=== PATIENT | male | born 1990 | race Caucasian/White ===

== ENCOUNTER 2016-04-20 16:06 | Emergency (ER) | payer OTHER ==
--- NOTE | 2016-04-20 17:23 | EDDOCDS ---
Physician Documentation [facility] Name: Tang Lucas Age: 25 yrs Sex: Male : 1990 Arrival Date: 04/20/2016 Time: 16:06 Bed Triage 3 Private MD: [place] [facility] [place]: 04/20/16 17:13 Discharged to Home/Self Care. Impression: Disorder of right external ear, unspecified. - Condition is Stable. - Discharge Instructions: Ear Barotrauma. - Prescriptions for Ibuprofen 600 mg Oral Tablet - take 1 tablet by ORAL route every 6 hours As needed take with food; 30 tablet. - Medication Reconciliation, Local Pharmacy Hours form. - Follow up: Ryan Mcneil; Reason: Continuance of care. - Problem is an ongoing problem. - Symptoms are unchanged. - Notes: Dr mcneil on 04/21/16 \T\ 0800 Historical: - Allergies: no known allergies; - Home Meds: 1. none - PMHx: none; - PSHx: none; - Social history: Smoking status: Patient states was never smoker of tobacco. No barriers to communication noted, The patient speaks fluent Welsh. - Family history: Not pertinent. - : The pt / caregiver states he / she is not on anticoagulants. Home medication list is obtained from the patient. - Exposure Risk Screening:: None identified. Vital Signs: 04/20 16:10 BP 167 / 72; Pulse 92; Resp 16; Temp 97.5(O); Pulse Ox 99% on R/A; Weight 71.67 kg / lr2 158.01 lbs (R); Height 5 ft. 7 in. (170.18 cm) (R); Pain 5/10; 16:10 Body Mass Index 24.75 (71.67 kg, 170.18 cm) lr2 Signatures: Tom Sky, GEOPHYSICAL LABORATORY SUPERVISOR GEOPHYSICAL LABORATORY SUPERVISOR Janey LindaRN RN ck1 Jami ChaoRN RN rs3 MTDD
--- NOTE | 2016-04-20 17:24 | EDDOCDS ---
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 rs3 had slight redness/pain in R ear. swelling and tenderness getting worse. Adult Sepsis Screening: The patient does not have new or worsening altered mentation. Patient's respiratory rate is less than 22. Systolic blood pressure is greater than 100. Patient has a qSOFA score of 0- Negative Sepsis Screen. Suicide/Homicide risk assessment- the patient denies having any suicidal and/or homicidal ideations and does not present with any other emotional, behavioral or mental health complaints. 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 Transition of care: patient was not received from another setting of care. 16:11 Acuity: JHON Level 3 rs3 16:11 Method Of Arrival: Walkin/Carried/Asstd rs3 Triage Assessment: 16:14 General: Appears in no apparent distress. Pain: Location: right ear. Pt Declines HIV rs3 testing. Historical: - Allergies: no known allergies; - Home Meds: 1. none - PMHx: none; - PSHx: none; - Social history: Smoking status: Patient states was never smoker of tobacco. No barriers to communication noted, The patient speaks fluent Slovak. - Family history: Not pertinent. - : The pt / caregiver states he / she is not on anticoagulants. Home medication list is obtained from the patient. - Exposure Risk Screening:: None identified. Screenin:22 Screening information is obtained from the patient. Fall risk: No risks identified. ck1 Assistance ADL's: requires no assistance with activities of daily living. Abuse/DV Screen: The patient / caregiver reports he/she is: not in a situation that causes fear, pain or injury. Nutritional screening: No deficits noted. Advance Directives: Currently, there is no health care proxy. home support is adequate. Assessment: 17:22 General: Appears in no apparent distress, comfortable, Behavior is appropriate for age, ck1 cooperative. Pain: Location: right ear Pain currently is 6 out of 10 on a pain scale. EENT: Ear canal bruising and swelling noted to right ear. patient reports pain 7/10. Respiratory: No deficits noted. Derm: Bruising that is dark purple, on right ear Swollen area noted. Vital Signs: 16:10 BP 167 / 72; Pulse 92; Resp 16; Temp 97.5(O); Pulse Ox 99% on R/A; Weight 71.67 kg (R); lr2 Height 5 ft. 7 in. (170.18 cm) (R); Pain 5/10; 16:10 Body Mass Index 24.75 (71.67 kg, 170.18 cm) lr2 Vitals: 16:10 Log In Time: April 20, 2016 at 16:05. lr2 ED Course: 16:08 Patient visited by Ida Ariza. lr2 16:08 Patient moved to Waiting lr2 16:09 ALIZA Akhtar is Private Physician. lr2 16:10 Patient moved to Pre RCE lr2 16:13 Triage Initiated rs3 16:17 Patient moved to Triage 3 ck1 16:59 [facility] ke 16:59 Patient visited by Tom Sky FNP. ke 16:59 Patient visited by Tom Sky FNP. ke 17:12 Ryan Mcneil is Referral Physician. ke 17:22 The patient / caregiver is instructed regarding the plan of care and ED course. ck1 17:22 No IV's were initiated during this patient's visit. No procedures done that require ck1 assistance. Order Results: There are currently no results for this order. Outcome: 17:13 Discharge ordered by Provider. ke 17:21 Discharge Assessment: Patient awake, alert and oriented x 3. No cognitive and/or ck1 functional deficits noted. Patient verbalized understanding of disposition instructions. patient administered narcotics - no. The following High Risk Discharge criteria are identified: None. Discharged to home ambulatory. Condition: stable. Discharge instructions given to patient, Instructed on discharge instructions, follow up and referral plans. medication usage, Demonstrated understanding of instructions, medications, Pt was receptive of discharge instructions/ teaching. Prescriptions given X 1. No special radiology studies were completed. Property :Personal belongings accompany Pt. 17:23 Patient left the ED. ck1 Signatures: Tom Sky FNP FNP ke Kim-Ryan,Janey,RN RN ck1 Jami Chao,RN RN rs3 Ida Ariza2 MTDD
--- NOTE | 2016-04-22 18:24 | EDDOCDS ---
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 rs3 had slight redness/pain in R ear. swelling and tenderness getting worse. Adult Sepsis Screening: The patient does not have new or worsening altered mentation. Patient's respiratory rate is less than 22. Systolic blood pressure is greater than 100. Patient has a qSOFA score of 0- Negative Sepsis Screen. Suicide/Homicide risk assessment- the patient denies having any suicidal and/or homicidal ideations and does not present with any other emotional, behavioral or mental health complaints. 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 Transition of care: patient was not received from another setting of care. 16:11 Acuity: JHON Level 3 rs3 16:11 Method Of Arrival: Walkin/Carried/Asstd rs3 Triage Assessment: 16:14 General: Appears in no apparent distress. Pain: Location: right ear. Pt Declines HIV rs3 testing. Historical: - Allergies: no known allergies; - Home Meds: 1. none - PMHx: none; - PSHx: none; - Social history: Smoking status: Patient states was never smoker of tobacco. No barriers to communication noted, The patient speaks fluent Armenian. - Family history: Not pertinent. - : The pt / caregiver states he / she is not on anticoagulants. Home medication list is obtained from the patient. - Exposure Risk Screening:: None identified. Screenin:22 Screening information is obtained from the patient. Fall risk: No risks identified. ck1 Assistance ADL's: requires no assistance with activities of daily living. Abuse/DV Screen: The patient / caregiver reports he/she is: not in a situation that causes fear, pain or injury. Nutritional screening: No deficits noted. Advance Directives: Currently, there is no health care proxy. home support is adequate. Assessment: 17:22 General: Appears in no apparent distress, comfortable, Behavior is appropriate for age, ck1 cooperative. Pain: Location: right ear Pain currently is 6 out of 10 on a pain scale. EENT: Ear canal bruising and swelling noted to right ear. patient reports pain 7/10. Respiratory: No deficits noted. Derm: Bruising that is dark purple, on right ear Swollen area noted. Vital Signs: 16:10 BP 167 / 72; Pulse 92; Resp 16; Temp 97.5(O); Pulse Ox 99% on R/A; Weight 71.67 kg (R); lr2 Height 5 ft. 7 in. (170.18 cm) (R); Pain 5/10; 16:10 Body Mass Index 24.75 (71.67 kg, 170.18 cm) lr2 Vitals: 16:10 Log In Time: April 20, 2016 at 16:05. lr2 ED Course: 16:08 Patient visited by Ida Ariza. lr2 16:08 Patient moved to Waiting lr2 16:09 [place] [facility] [place]. lr2 16:10 Patient moved to Pre RCE lr2 16:13 Triage Initiated rs3 16:17 Patient moved to Triage 3 ck1 16:59 [facility] ke 16:59 Patient visited by Tom Sky FNP. ke 16:59 Patient visited by Tom Sky FNP. ke 17:12 Ryan Mcneil is Referral Physician. ke 17:22 The patient / caregiver is instructed regarding the plan of care and ED course. ck1 17:22 No IV's were initiated during this patient's visit. No procedures done that require ck1 assistance. 17:53 [facility] Payment Agreement was scanned into [employer] and attached to record. zo 18:07 Patient name changed from Tang\S\\S\Devoll\S\ to Tang\S\ \S\Devoll. EDMS 04/21 10:51 T-Sheet-- Draft Copy was scanned into [employer] and attached to record. gb Order Results: There are currently no results for this order. Outcome: 04/20 17:13 Discharge ordered by Provider. ke 17:21 Discharge Assessment: Patient awake, alert and oriented x 3. No cognitive and/or ck1 functional deficits noted. Patient verbalized understanding of disposition instructions. patient administered narcotics - no. The following High Risk Discharge criteria are identified: None. Discharged to home ambulatory. Condition: stable. Discharge instructions given to patient, Instructed on discharge instructions, follow up and referral plans. medication usage, Demonstrated understanding of instructions, medications, Pt was receptive of discharge instructions/ teaching. Prescriptions given X 1. No special radiology studies were completed. Property :Personal belongings accompany Pt. 17:23 Patient left the ED. ck1 Signatures: Dispatcher [employer] EDMS Philomena Smith, Reg Reg Tom Nunez, ACCOUNT EXECUTIVE TRAINEE ACCOUNT EXECUTIVE TRAINEE Janey LindaRN RN ck1 Dylan Jones Rosemary, RN RN rs3 Ida Ariza2 Chart Complete MTDD
--- NOTE | 2016-04-22 18:24 | EDDOCDS ---
Physician Documentation [facility] Name: Tang Lucas Age: 25 yrs Sex: Male : 1990 Arrival Date: 04/20/2016 Time: 16:06 Bed Triage 3 Private MD: ALIZA Akhtar Disposition: 04/20/16 17:13 Discharged to Home/Self Care. Impression: Disorder of right external ear, unspecified. - Condition is Stable. - Discharge Instructions: Ear Barotrauma. - Prescriptions for Ibuprofen 600 mg Oral Tablet - take 1 tablet by ORAL route every 6 hours As needed take with food; 30 tablet. - Medication Reconciliation, Local Pharmacy Hours form. - Follow up: Ryan Mcneil; Reason: Continuance of care. - Problem is an ongoing problem. - Symptoms are unchanged. - Notes: Dr mcneil on 04/21/16 \T\ 0800 Historical: - Allergies: no known allergies; - Home Meds: 1. none - PMHx: none; - PSHx: none; - Social history: Smoking status: Patient states was never smoker of tobacco. No barriers to communication noted, The patient speaks fluent Latvian. - Family history: Not pertinent. - : The pt / caregiver states he / she is not on anticoagulants. Home medication list is obtained from the patient. - Exposure Risk Screening:: None identified. Vital Signs: 04/20 16:10 BP 167 / 72; Pulse 92; Resp 16; Temp 97.5(O); Pulse Ox 99% on R/A; Weight 71.67 kg / lr2 158.01 lbs (R); Height 5 ft. 7 in. (170.18 cm) (R); Pain 5/10; 16:10 Body Mass Index 24.75 (71.67 kg, 170.18 cm) lr2 MDM: 17:53 [facility] Payment Agreement was scanned into [employer] and attached to record. zo 17:53 Financial registration complete. zo 04/21 10:51 T-Sheet-- Draft Copy was scanned into [employer] and attached to record. gb Signatures: Philomena Smith, Reg Reg gb Tom Sky, MORTGAGE LOAN COUNSELOR MORTGAGE LOAN COUNSELOR Janey LindaRN RN ck1 Dylan Jones RosemaryRN RN rs3 The chart was reviewed and I authenticate all verbal orders and agree with the evaluation and treatment provided.Attachments: 04/20 17:53 [facility] [place] Payment Agreement zo 04/21 10:51 T-Sheet-- Draft Copy gb Chart Complete MTDD
--- NOTE | 2016-04-22 18:24 | EDDOCDS ---
Physician Documentation [facility] Name: Tang Lucas Age: 25 yrs Sex: Male : 1990 Arrival Date: 04/20/2016 Time: 16:06 Bed Triage 3 Private MD: ALIZA Akhtar Disposition: 04/20/16 17:13 Discharged to Home/Self Care. Impression: Disorder of right external ear, unspecified. - Condition is Stable. - Discharge Instructions: Ear Barotrauma. - Prescriptions for Ibuprofen 600 mg Oral Tablet - take 1 tablet by ORAL route every 6 hours As needed take with food; 30 tablet. - Medication Reconciliation, Local Pharmacy Hours form. - Follow up: Ryan Mcneil; Reason: Continuance of care. - Problem is an ongoing problem. - Symptoms are unchanged. - Notes: Dr mcneil on 04/21/16 \T\ 0800 Historical: - Allergies: no known allergies; - Home Meds: 1. none - PMHx: none; - PSHx: none; - Social history: Smoking status: Patient states was never smoker of tobacco. No barriers to communication noted, The patient speaks fluent Tajik. - Family history: Not pertinent. - : The pt / caregiver states he / she is not on anticoagulants. Home medication list is obtained from the patient. - Exposure Risk Screening:: None identified. Vital Signs: 04/20 16:10 BP 167 / 72; Pulse 92; Resp 16; Temp 97.5(O); Pulse Ox 99% on R/A; Weight 71.67 kg / lr2 158.01 lbs (R); Height 5 ft. 7 in. (170.18 cm) (R); Pain 5/10; 16:10 Body Mass Index 24.75 (71.67 kg, 170.18 cm) lr2 MDM: 17:53 [facility] Payment Agreement was scanned into [employer] and attached to record. zo 17:53 Financial registration complete. zo 04/21 10:51 T-Sheet-- Draft Copy was scanned into [employer] and attached to record. gb Signatures: Philomena Smith, Reg Reg gb Tom Sky, BAND SAW RUNNER BAND SAW RUNNER Janye LindaRN RN ck1 Dylan Jones RosemaryRN RN rs3 The chart was reviewed and I authenticate all verbal orders and agree with the evaluation and treatment provided.Attachments: 04/20 17:53 [facility] [place] zo 04/21 10:51 T-Sheet-- Draft Copy gb Chart Complete MTDD
== END 2016-04-20 17:23 | disposition home or self-care (01) ==
LOC: M ED 16:06
DX: S00.401A Unspecified superficial injury of right ear, initial encounter (principal); X58.XXXA Exposure to other specified factors, initial encounter; Y92.89 Other specified places as the place of occurrence of the external cause; Y93.89 Activity, other specified; Y99.1 Military activity